=== PATIENT | female | born 1970 | race Caucasian/White ===

== ENCOUNTER → 2018-01-07 | Outpatient (CLI) | payer BC ==
--- NOTE | 2018-01-07 09:59 | MM ---
Reason for exam: follow-up at short interval from prior study. Last mammogram was performed 6 months ago. History: Cyst aspiration of the right breast, July 2012. Took hormonal contraceptives for 16 years beginning at age 21. Physical Findings: Nurse Summary: 3cm nodule in the left breast at 12 o'clock (nurse mj). MG 3D Diag Mammo W/Cad RT CC, MLO, and LM view(s) were taken of the right breast. Prior study comparison: July 04, 2017, bilateral MG 3d diag mammo w/cad YASMINE. July 06, 2016, bilateral MG work up mamm w CAD BILAT. The breast tissue is heterogeneously dense. This may lower the sensitivity of mammography. Finding: There is a 6 mm circumscribed round mass in the inner quadrant, middle position of the right breast. There is a chronic nodularity in the right breast. New finding and increase in size since July 04, 2017. These results were verbally communicated with the patient and result sheet given to the patient on 01/07/18. ASSESSMENT: Incomplete: need additional imaging evaluation, BI-RAD 0 RECOMMENDATION: Ultrasound of both breasts. (new palpables)
--- NOTE | 2018-01-07 10:01 | USB ---
Reason for exam: additional evaluation requested from abnormal screening. History: Cyst aspiration of the right breast, July 2012. Took hormonal contraceptives for 16 years beginning at age 21. US Breast Limited BILAT Right limited breast ultrasound including focal area of concern, retroareolar and axilla demonstrates a 0.7 x 0.4 x 0.7cm oval, cystic cluster at 2 o'clock and a 0.5 x 0.3 x 0.4cm oval, hypoechoic probable cyst at 3 o'clock. Left limited breast ultrasound including focal area of concern, retroareolar and axilla demonstrates a 2.9 x 1.9 x 3.4cm oval, cystic lesion at 12 o'clock. These results were verbally communicated with the patient and result sheet given to the patient on 01/07/18. ASSESSMENT: Probably benign, BI-RAD 3 RECOMMENDATION: Follow-up diagnostic mammogram of both breasts in 6 months. Ultrasound of the right breast in 6 months.
== END | disposition home or self-care (01) ==
LOC: RADMAMWWP 08:09
PROVIDERS: ATTEND Obstetrics & Gynecology
DX: R92.8 Other abnormal and inconclusive findings on diagnostic imaging of breast (principal)
CPT/HCPCS: 77061; 77065

== ENCOUNTER → 2018-07-10 | Outpatient (CLI) | payer BC ==
--- NOTE | 2018-07-11 08:45 | MM ---
Reason for exam: follow-up at short interval from prior study. Last mammogram was performed 6 months ago. History: Cyst aspiration of the right breast, July 2012. Took hormonal contraceptives for 16 years beginning at age 21. Physical Findings: Nurse Summary: 0.5 x 0.5cm nodule in the right breast at 12 o'clock (nurse ts). MG 3D Diag Mammo W/Cad YASMINE Bilateral CC and MLO view(s) were taken. Prior study comparison: January 07, 2018, right breast MG 3d diag mammo w/cad RT. July 04, 2017, bilateral MG 3d diag mammo w/cad YASMINE. The breast tissue is heterogeneously dense. This may lower the sensitivity of mammography. No suspicious calcifications are seen. There is chronic nodularity bilaterally. These results were verbally communicated with the patient and result sheet given to the patient on 07/10/18. ASSESSMENT: Incomplete: need additional imaging evaluation, BI-RAD 0 RECOMMENDATION: Ultrasound of the right breast.
--- NOTE | 2018-07-11 08:47 | USB ---
Reason for exam: follow-up at short interval from prior study. History: Cyst aspiration of the right breast, July 2012. Took hormonal contraceptives for 16 years beginning at age 21. US Breast RT Right complete breast ultrasound includes all four quadrants, the retroareolar region and axilla. Finding demonstrates a 0.5 x 0.2 x 0.5cm lesion too small to characterize at 1 o'clock, a 0.4 x 0.2 x 0.3cm lesion too small to characterize at 2 o'clock, a 0.6 x 0.2 x 0.4cm lesion too small to characterize at 3 o'clock and a 0.7 x 0.3 x 0.5cm mixed lesion at 6 o'clock. These results were verbally communicated with the patient and result sheet given to the patient on 07/10/18. ASSESSMENT: Probably benign, BI-RAD 3 RECOMMENDATION: Ultrasound of the right breast in 6 months.
== END | disposition home or self-care (01) ==
LOC: RADMAMWWP 14:57
PROVIDERS: ATTEND Obstetrics & Gynecology
DX: R92.8 Other abnormal and inconclusive findings on diagnostic imaging of breast (principal)
CPT/HCPCS: 77062; 77066

== ENCOUNTER → 2019-12-31 | Outpatient (CLI) | payer BC ==
--- NOTE | 2019-12-31 12:34 | MM ---
Reason for exam: additional evaluation requested from prior study. Last mammogram was performed 1 year and 6 months ago. History: Cyst aspiration of the right breast, July 2012. Took hormonal contraceptives for 16 years beginning at age 21. Physical Findings: Nurse did not find any significant physical abnormalities on exam. MG 3D Diag Mammo W/Cad YASMINE Bilateral CC and MLO view(s) were taken. Prior study comparison: July 10, 2018, bilateral MG 3d diag mammo w/cad YASMINE. January 07, 2018, right breast MG 3d diag mammo w/cad RT. July 04, 2017, bilateral MG 3d diag mammo w/cad YASMINE. The breast tissue is extremely dense which could obscure a lesion on mammography. No significant new findings when compared with previous films. These results were verbally communicated with the patient and result sheet given to the patient on 12/31/19. ASSESSMENT: Benign, BI-RAD 2 RECOMMENDATION: Routine screening mammogram of both breasts in 1 year.
--- NOTE | 2019-12-31 12:37 | USB ---
Reason for exam: additional evaluation requested from prior study. History: Cyst aspiration of the right breast, July 2012. Took hormonal contraceptives for 16 years beginning at age 21. US Breast RT Technologist: Nel Hernandez Right complete breast ultrasound includes all four quadrants, the retroareolar region and axilla. Finding demonstrates a 0.4 x 0.5 x 0.4cm circular, through transmission lesion at 12 o'clock for which a cyst aspiration is recommended, a 0.3 x 0.5 x 0.3cm circular, cystic lesion at 7 o'clock, a 1.1 x 0.6 x 0.4cm cystic cluster at 10 o'clock and a 0.7 x 0.8 x 0.4cm mixed lesion at 12 o'clock. These results were verbally communicated with the patient and result sheet given to the patient on 12/31/19. ASSESSMENT: Suspicious, BI-RAD 4 RECOMMENDATION: Aspiration of the right breast. Called Dr. Laughlin's office with mammographic findings and has scheduled an appointment for the patient for 01/18/20 at 9:[address] Lopez. Aspiration scheduled for 01/12/20 at 1:00. PRELIMINARY REPORT CALLED AND FAXED TO DR. LOPEZ ON 12/31/19. Ultrasound of the right breast in 6 months.
== END | disposition home or self-care (01) ==
LOC: RADMAMWWP 09:46
PROVIDERS: ATTEND Obstetrics & Gynecology
DX: R92.8 Other abnormal and inconclusive findings on diagnostic imaging of breast (principal)
CPT/HCPCS: 77062; 77066

== ENCOUNTER → 2020-01-12 | Day surgery (SDC) | payer BC ==
[2020-01-12 12:16] VITALS: RESP 16
--- NOTE | 2020-01-12 13:54 | USB ---
EXAMINATION TYPE: US biopsy breast VAD RT, MG diagnostic mammo RT wo CAD DATE OF EXAM: 01/12/2020 CLINICAL HISTORY: R92.8 abn. mammo. Abnormal ultrasound. TECHNIQUE: Ultrasound guided core biopsy of right breast with clip placement and follow-up diagnostic two-view mammogram. COMPARISON: Prior ultrasound December 31, 2019 and older studies. FINDINGS: The procedure of ultrasound guided fine needle aspiration and/or core biopsy was explained to the patient. Benefits, alternatives, and risks were discussed. An informed consent was then obtained. The patient was placed in supine positioning for imaging and for the procedure. Preprocedure ultrasound redemonstrates roughly 5 mm oval circumscribed lesion 12:00 position zone B/C in the right breast. No increased through transmission. The overlying skin was prepped and draped in usual sterile fashion. Lidocaine is used as anesthetic into the skin and subcutaneous tissue up to area of concern in the right breast. Ultrasound-guided fine-needle aspiration not attempted due to small size of lesion. Under ultrasound guidance, a 12-gauge vacuum assisted biopsy gun device was used to obtain 3 core samples. Following this, a biopsy clip was left at site of lesion. Suspicious lesion not clearly identified after sampling The patient tolerated the procedure well without any immediate complication. The patient was kept in the radiology department for short stay after the procedure and then discharged home in stable condition. Post procedure mammogram shows successful deployment of clip. IMPRESSION: Successful, uncomplicated ultrasound guided core biopsy of area of concern in the right breast, full pathology results to follow. Low index of suspicion noted at time of procedure. Pathology Results: Benign RIGHT BREAST, ASPIRATE: [place] apocrine lining cells, macrophages and degenerated cellular material consistent with benign apocrine cyst/cyst contents. Recommendation Follow up mammogram of the right breast in 6 months. JULIÁN
[2020-01-12 14:03] VITALS: BP 133/79; PULSE 67; TEMP 98.3
== END ==
LOC: RADUSWWP 11:56
PROVIDERS: ATTEND Student in an Organized Health Care Education/Training Program
DX: N60.31 Fibrosclerosis of right breast (principal); N60.21 Fibroadenosis of right breast; N60.81 Other benign mammary dysplasias of right breast
CPT/HCPCS: 88305; 77065; 19083; A4648; J2001

== ENCOUNTER → 2020-07-08 | Outpatient (CLI) | payer BC ==
--- NOTE | 2020-07-08 09:49 | USB ---
Reason for exam: follow-up at short interval from prior study. History: Benign US biopsy breast VAD RT of the right breast, January 12, 2020. Cyst aspiration of the right breast, July 2012. Took hormonal contraceptives for 16 years beginning at age 21. Physical Findings: Nurse did not find any significant physical abnormalities on exam. US Breast Limited RT Right limited breast ultrasound including focal area of concern, retroareolar and axilla demonstrates three oval, cystic lesions measuring 5 x 4 x 6mm at 12 o'clock, 5 x 3 x 4mm at 2 o'clock and 6 x 3 x 5mm at 3 o'clock. These results were verbally communicated with the patient and result sheet given to the patient on 07/08/20. ASSESSMENT: Benign, BI-RAD 2 RECOMMENDATION: Routine screening mammogram of both breasts in 6 months. Back on schedule for December 2020.
== END | disposition home or self-care (01) ==
LOC: RADUSWWP 08:05
PROVIDERS: ATTEND Obstetrics & Gynecology
DX: R92.8 Other abnormal and inconclusive findings on diagnostic imaging of breast (principal)

== ENCOUNTER → 2021-03-09 | Outpatient (CLI) | payer BC ==
--- NOTE | 2021-03-13 09:04 | MM ---
Reason for exam: screening (asymptomatic). Last mammogram was performed 1 year and 2 months ago. History: Benign US biopsy breast VAD RT of the right breast, January 12, 2020. Cyst aspiration of the right breast, July 2012. Took hormonal contraceptives for 16 years beginning at age 21. Physical Findings: A clinical breast exam by your physician is recommended on an annual basis and results should be correlated with mammographic findings. MG 3D Screening Mammo W/Cad Bilateral CC and MLO view(s) were taken. Prior study comparison: December 31, 2019, bilateral MG 3d diag mammo w/cad YASMINE. July 10, 2018, bilateral MG 3d diag mammo w/cad YASMINE. July 04, 2017, bilateral MG 3d diag mammo w/cad YASMINE. The breast tissue is heterogeneously dense. This may lower the sensitivity of mammography. Diffuse bilateral punctate calcifications redemonstrated. New nodularity lower outer quadrant left breast posteriorly. ASSESSMENT: Incomplete: need additional imaging evaluation, BI-RAD 0 RECOMMENDATION: Special view mammogram of the left breast. (3D) If lesion persists on supplemental views, image directed ultrasound is recommended. [facility] will attempt to contact patient to return for supplemental views and ultrasound if indicated.
== END | disposition home or self-care (01) ==
LOC: RADMAMWWP 08:18
PROVIDERS: ATTEND Obstetrics & Gynecology
DX: Z12.31 Encounter for screening mammogram for malignant neoplasm of breast (principal)
CPT/HCPCS: 77063; 77067

== ENCOUNTER → 2021-03-17 | Outpatient (CLI) | payer BC ==
--- NOTE | 2021-03-20 09:19 | MM ---
Reason for exam: additional evaluation requested from abnormal screening. Last mammogram was performed less than 1 month ago. History: Benign US biopsy breast VAD RT of the right breast, January 12, 2020. Cyst aspiration of the right breast, July 2012. Took hormonal contraceptives for 16 years beginning at age 21. Physical Findings: Nurse did not find any significant physical abnormalities on exam. MG 3D Work Up W/Cad LT Spot compression XCCL, spot compression MLO, and LM view(s) were taken of the left breast. Prior study comparison: March 09, 2021, bilateral MG 3d screening mammo w/cad. The breast tissue is heterogeneously dense. This may lower the sensitivity of mammography. Abnormality persists lower outer left breast. These results were verbally communicated with the patient and result sheet given to the patient on 03/17/21. ASSESSMENT: Incomplete: need additional imaging evaluation, BI-RAD 0 RECOMMENDATION: Ultrasound of the left breast.
--- NOTE | 2021-03-20 09:21 | USB ---
Reason for exam: additional evaluation requested from abnormal screening. History: Benign US biopsy breast VAD RT of the right breast, January 12, 2020. Cyst aspiration of the right breast, July 2012. Took hormonal contraceptives for 16 years beginning at age 21. US Breast Workup Limited LT Left limited breast ultrasound including focal area of concern, retroareolar and axilla demonstrates a 0.4 x 0.4 x 0.2cm oval, cystic lesion at 3 o'clock, a 0.5 x 0.3 x 0.3cm oval, cystic cluster at 5 o'clock, a 0.3 x 0.5 x 0.3cm oval, cystic lesion at 6 o'clock and a 1.6 x 1.4 x 0.6cm lymph node at the axilla. These results were verbally communicated with the patient and result sheet given to the patient on 03/17/21. ASSESSMENT: Benign, BI-RAD 2 RECOMMENDATION: Return to routine screening mammogram schedule for both breasts.
== END | disposition home or self-care (01) ==
LOC: RADMAMWWP 14:43
PROVIDERS: ATTEND Obstetrics & Gynecology
DX: R92.2 Inconclusive mammogram (principal); Z79.3 Long term (current) use of hormonal contraceptives
CPT/HCPCS: 77061; 77065

== ENCOUNTER → 2021-09-01 | Outpatient (CLI) | payer BC ==
--- NOTE | 2021-09-01 08:04 | MR ---
EXAMINATION TYPE: MR angio head wo con DATE OF EXAM: 09/01/2021 COMPARISON: NONE HISTORY: Headaches and dizziness since june. TECHNIQUE: Time of flight images focusing on the [place] were performed without contrast.. 2-D and 3-D postprocessing imaging is performed on independent workstation. FINDINGS: Codominant vertebral arteries patent to basilar junction. No significant focal stenosis or aneurysm in the posterior circulation. Patent right posterior communicating artery. Patent but small caliber left posterior communicating artery. Images of the anterior circulation show patent anterior communicating artery on image 84. There is so me tortuous course to the anterior cerebral arteries but no significant focal stenosis or aneurysm in the anterior circulation. IMPRESSION: No aneurysm at the level of the [place] of [place].
== END | disposition home or self-care (01) ==
LOC: RADMRIMAIN 07:05
PROVIDERS: ATTEND Internal Medicine
DX: R42 Dizziness and giddiness (principal); R51.9 Headache, unspecified
CPT/HCPCS: 70544

== ENCOUNTER 2021-09-19 07:13 | Observation (INO) | payer BC ==
[2021-09-19 07:20] VITALS: RESP 18
[2021-09-19] MEDS ORDERED: ONDANSETRON 4 MG/2 ML VIAL IVP STA (08:06)
[2021-09-19] MEDS ORDERED: HYDROmorphone 0.5 MG/0.5 ML SYRINGE IVP STA ×2 (08:06→11:44)
[2021-09-19] MEDS ORDERED: SODIUM CHLORIDE 0.9% 1,000 ML IV STA (08:06)
--- NOTE | 2021-09-19 08:25 | ED ---
General Adult HPI - General Chief complaint: Abdominal Pain Stated complaint: L Flank Pain Time Seen by Provider: 09/19/21 07:21 Source: patient, RN notes reviewed Mode of arrival: ambulatory Limitations: no limitations - History of Present Illness Initial comments: 51-year-old female presents to the emergency room for a chief complaint of left sided abdominal pain. Patient states that this started very Sep 08. She was started on Augmentin for a bilateral ear infection about 4-5 days prior to this. Patient states she stopped taking the antibiotic in and saw her doctor on the who ordered a CAT scan with IV contrast showing inflammation of the colon according to the patient. He shouldn't states the pain then resolved however she was given more Cipro and Flagyl to start yesterday and late last night and this morning her pain returned. She denies fevers but does admit to chills. She denies diarrhea. Admits to nausea but denies vomiting. Denies any history of abdominal surgeries.Patient has no other complaints at this time inc luding shortness of breath, chest pain, vomiting, headache, or visual changes. - Related Data Home Medications Medication Instructions Recorded Confirmed Cetirizine HCl [Zyrtec] 10 mg PO DAILY 01/05/20 09/19/21 Ciprofloxacin HCl [Cipro] 500 mg PO Q12HR 09/19/21 09/19/21 L.acidoph,Paracasei, B.lactis 1 cap PO DAILY 09/19/21 09/19/21 [Probiotic] Multivitamins, Thera [Multivitamin 1 tab PO DAILY 09/19/21 09/19/21 (formulary)] metroNIDAZOLE [Flagyl] 500 mg PO TID 09/19/21 09/19/21 Allergies Allergy/AdvReac Type Severity Reaction Status Date / Time clarithromycin [From Biaxin] Allergy Rash/Hives Verified 09/19/21 08:53 Review of Systems ROS Statement: Those systems with pertinent positive or pertinent negative responses have been documented in the HPI. ROS Other: All systems not noted in ROS Statement are negative. Past Medical History Past Medical History: No Reported History History of Any Multi-Drug Resistant Organisms: None Reported Past Surgical History: Breast Surgery, Uterine Ablation Additional Past Surgical History / Comment(s): right breast cyst aspiration roughly 5 years ago Past Anesthesia/Blood Transfusion Reactions: No Reported Reaction Past Psychological History: No Psychological Hx Reported Smoking Status: Never smoker Past Alcohol Use History: Occasional Past Drug Use History: None Reported General Exam Limitations: no limitations General appearance: alert, in no apparent distress Head exam: Present: atraumatic Eye exam: Present: normal appearance, PERRL, EOMI. Absent: scleral icterus, conjunctival injection ENT exam: Present: normal exam, mucous membranes moist Neck exam: Present: normal inspection, full ROM. Absent: tenderness Respiratory exam: Present: normal lung sounds bilaterally. Absent: respiratory distress, wheezes Cardiovascular Exam: Present: regular rate, normal rhythm, normal heart sounds GI/Abdominal exam: Present: soft, tenderness (LLQ tenderness, no gaurding/rebound, no upper or RLQ tenderness.), normal bowel sounds. Absent: distended, guarding, rebound Neurological exam: Present: alert Course Vital Signs 09/19/21 07:14 Temperature 97 F L Pulse Rate 75 Respiratory 18 Rate Blood Pressure 160/87 O2 Sat by Pulse 100 Oximetry Medical Decision Making - Medical Decision Making Vitals are stable. CBC and CMP are unremarkable. Lactic acid is normal Uri nalysis is negative. Patient was in moderate to severe pain upon arrival. Given Dilaudid which did help significantly. I did review CAT scan which showed some possible mild colonic inflammation as well as a possible lesion in the left ovary, recommended pelvic ultrasound. In the ER I did obtain an ultrasound which was limited due to bowel gas but did not show any significant abnormalities. Abdomen x-ray showed some stool and gas but no acute abnormalities. No pneumoperitoneum. Patient reevaluated and pain has increased again and she is very comfortable. I discussed this case with Dr. Montano as he has also been seen patient for this complaint. At this time requests admission to him with consult to surgery with RIYA Oliveira and [place]. Patient does see Dr. biggs. - Lab Data Result diagrams: 09/19/21 08:32 09/19/21 08:32 Lab Results 09/19/21 09/19/21 09/19/21 Range/Units 08:32 08:32 08:32 WBC 5.4 (3.8-10.6) k/uL RBC 4.29 (3.80-5.40) m/uL Hgb 14.0 (11.4-16.0) gm/dL Hct 40.8 (34.0-46.0) % MCV 95.1 (80.0-100.0) fL MCH 32.6 (25.0-35.0) pg MCHC 34.3 (31.0-37.0) g/dL RDW 11.5 (11.5-15.5) % Plt Count 278 (150-450) k/uL MPV 6.8 Neutrophils % 59 % Lymphocytes % 27 % Monocytes % 7 % Eosinophils % 3 % Basophils % 1 % Neutrophils # 3.2 (1.3-7.7) k/uL Lymphocytes # 1.4 (1.0-4.8) k/uL Monocytes # 0.4 (0-1.0) k/uL Eosinophils # 0.2 (0-0.7) k/uL Basophils # 0.1 (0-0.2) k/uL Sodium 140 (137-145) mmol/L Potassium 4.1 (3.5-5.1) mmol/L Chloride 109 H (98-107) mmol/L Carbon Dioxide 23 (22-30) mmol/L Anion Gap 8 mmol/L BUN 11 (7-17) mg/dL Creatinine 0.69 (0.52-1.04) mg/dL Est GFR (CKD-EPI)AfAm >90 (>60 ml/min/1.73 sqM) Est GFR (CKD-EPI)NonAf >90 (>60 ml/min/1.73 sqM) Glucose 103 H (74-99) mg/dL Plasma Lactic Acid Dilan (0.7-2.0) mmol/L Calcium 9.4 (8.4-10.2) mg/dL Total Bilirubin 1.7 H (0.2-1.3) mg/dL AST 26 (14-36) U/L ALT 19 (4-34) U/L Alkaline Phosphatase 67 (38-126) U/L Total Protein 7.8 (6.3-8.2) g/dL Albumin 4.4 (3.5-5.0) g/dL Amylase 99 (30-110) U/L Lipase 97 (23-300) U/L Urine Color Light Yellow Urine Appearance Clear (Clear) Urine pH 7.5 (5.0-8.0) Ur Specific [place] 1.003 (1.001-1.035) Urine Protein Negative (Negative) Urine Glucose (UA) Negative (Negative) Urine Ketones Negative (Negative) Urine Blood Trace H (Negative) Urine Nitrite Negative (Negative) Urine Bilirubin Negative (Negative) Urine Urobilinogen <2.0 (<2.0) mg/dL Ur Leukocyte Esterase Negative (Negative) Urine RBC 1 (0-5) /hpf Ur Squamous Epith Cells 1 (0-4) /hpf Urine Bacteria Rare H (None) /hpf Urine HCG, Qual (Not Detectd) 09/19/21 09/19/21 Range/Units 08:32 08:32 WBC (3.8-10.6) k/uL RBC (3.80-5.40) m/uL Hgb (11.4-16.0) gm/dL Hct (34.0-46.0) % MCV (80.0-100.0) fL MCH (25.0-35.0) pg MCHC (31.0-37.0) g/dL RDW (11.5-15.5) % Plt Count (150-450) k/uL MPV Neutrophils % % Lymphocytes % % Monocytes % % Eosinophils % % Basophils % % Neutrophils # (1.3-7.7) k/uL Lymphocytes # (1.0-4.8) k/uL Monocytes # (0-1.0) k/uL Eosinophils # (0-0.7) k/uL Basophils # (0-0.2) k/uL Sodium (137-145) mmol/L Potassium (3.5-5.1) mmol/L Chloride (98-107) mmol/L Carbon Dioxide (22-30) mmol/L Anion Gap mmol/L BUN (7-17) mg/dL Creatinine (0.52-1.04) mg/dL Est GFR (CKD-EPI)AfAm (>60 ml/min/1.73 sqM) Est GFR (CKD-EPI)NonAf (>60 ml/min/1.73 sqM) Glucose (74-99) mg/dL Plasma Lactic Acid Dilan 0.9 (0.7-2.0) mmol/L Calcium (8.4-10.2) mg/dL Total Bilirubin (0.2-1.3) mg/dL AST (14-36) U/L ALT (4-34) U/L Alkaline Phosphatase (38-126) U/L Total Protein (6.3-8.2) g/dL Albumin (3.5-5.0) g/dL Amylase (30-110) U/L Lipase (23-300) U/L Urine Color Urine Appearance (Clear) Urine pH (5.0-8.0) Ur Specific [place] (1.001-1.035) Urine Protein (Negative) Urine Glucose (UA) (Negative) Urine Ketones (Negative) Urine Blood (Negative) Urine Nitrite (Negative) Urine Bilirubin (Negative) Urine Urobilinogen (<2.0) mg/dL Ur Leukocyte Esterase (Negative) Urine RBC (0-5) /hpf Ur Squamous Epith Cells (0-4) /hpf Urine Bacteria (None) /hpf Urine HCG, Qual Not Detected (Not Detectd) Disposition Clinical Impression: Intractable abdominal pain Disposition: ADMITTED IP TO THIS HOSP Is patient prescribed a controlled substance at d/c from ED?: No Referrals: Shannen Montano MD [Primary Care Provider] - 1-2 days Time of Disposition: 12:06
[2021-09-19 08:50] LABS: Basophils # (A) 0.1 k/uL (0-0.2); Basophils % (A) 1 %; Eosinophils # (A) 0.2 k/uL (0-0.7); Eosinophils % (A) 3 %; HCT 40.8 % (34.0-46.0); Lymphocytes # (A) 1.4 k/uL (1.0-4.8); Lymphocytes % (A) 27 %; MCH 32.6 pg (25.0-35.0); MCHC 34.3 g/dL (31.0-37.0); MCV 95.1 fL (80.0-100.0); Mean Platelet Volume 6.8; Monocytes # (A) 0.4 k/uL (0-1.0); Monocytes % (A) 7 %; Neutrophils # (A) 3.2 k/uL (1.3-7.7); Neutrophils % (A) 59 %; Platelet Count 278 k/uL (150-450); RBC 4.29 m/uL (3.80-5.40); RDW 11.5 % (11.5-15.5); WBC 5.4 k/uL (3.8-10.6)
[2021-09-19 08:52] LABS: Appearance,Urine Clear (Clear); Bacteria,Urine Rare /hpf; Bilirubin,Urine Negative (Negative); Blood,Urine Trace (Negative); Color,Urine Light Yellow; Glucose,Urine (UA) Negative (Negative); Ketones,Urine Negative (Negative); Leukocyte Esterase,Urine Negative (Negative); Nitrite,Urine Negative (Negative); PH, Urine 7.5 (5.0-8.0); Protein,Urine Negative (Negative); RBC,Urine 1 /hpf (0-5); Specific Gravity,Urine 1.003 (1.001-1.035); Squamous Epithelial Cell,Urine 1 /hpf (0-4); Urobilinogen,Urine <2.0 mg/dL (<2.0)
[2021-09-19 09:00] LABS: ALT 19 U/L (4-34); AST 26 U/L (14-36); African American GFR (CKD) >90 (>60 ml/min/1.73 sqM); Albumin 4.4 g/dL (3.5-5.0); Alkaline Phosphatase 67 U/L (38-126); Amylase 99 U/L (30-110); Anion Gap 8 mmol/L; Blood Urea Nitrogen 11 mg/dL (7-17); Calcium 9.4 mg/dL (8.4-10.2); Carbon Dioxide 23 mmol/L (22-30); Chloride 109 mmol/L (98-107); Glucose 103 mg/dL (74-99); Lipase 97 U/L (23-300); Non-African American GFR(CKD) >90 (>60 ml/min/1.73 sqM); Potassium 4.1 mmol/L (3.5-5.1); Sodium 140 mmol/L (137-145); Total Bilirubin 1.7 mg/dL (0.2-1.3); Total Protein 7.8 g/dL (6.3-8.2)
--- NOTE | 2021-09-19 09:54 | XR ---
EXAMINATION TYPE: XR abdomen 2V DATE OF EXAM: 09/19/2021 CLINICAL HISTORY: Left lower quadrant pain TECHNIQUE: Supine and upright views of the abdomen are obtained. COMPARISON: None. FINDINGS: Scattered gas is seen in non-distended small bowel loops. Gas and fecal material is seen in non-distended colon. Right-sided pelvic phleboliths are present. No free air. The lung bases are clear and the osseous structures are intact. IMPRESSION: Overall nonobstructive bowel gas pattern.
--- NOTE | 2021-09-19 11:13 | US ---
EXAMINATION TYPE: US pelvis complete transvag DATE OF EXAM: 09/19/2021 COMPARISON: NONE CLINICAL HISTORY: pain. LLQ pain x 1 week, started period today, , h/o ablation TECHNIQUE: TA/TV. Transabdominal sonographic images of the pelvis were acquired. Transvaginal sono graphic images were medically necessary to better assess the following anatomy: left ovary Date of LMP: today EXAM MEASUREMENTS: Uterus: 8.6 x 5.7 x 4.3 cm Endometrial Stripe: 0.7 cm Right Ovary: 2.4 x 1.2 x 1.2 cm Left Ovary: 1.6 x 1.1 x 0.7 cm 1. Uterus: Anteverted heterogeneous, nabothian within cervix 2. Endometrium: wnl 3. Right Ovary: wnl 4. Left Ovary: wnl Spectral, color and waveform doppler imaging shows good arterial and venous flow within the ovaries ; there is no evidence for ovarian torsion. 5. Bilateral Adnexa: bowel gas limits view 6. Posterior cul-de-sac: wnl very challenging to assess ovaries due to extensive bowel gas, used transabdominal approach to find left ovary. IMPRESSION: No abnormality evident to account for patient's symptoms.
[2021-09-19] MEDS ORDERED: ONDANSETRON 4 MG/2 ML VIAL IVP PRN ×2 (12:07→14:32)
[2021-09-19] MEDS ORDERED: NALOXONE 0.4 MG/ML 1 ML VIAL IV PRN (12:07)
[2021-09-19] MEDS ORDERED: HYDROmorphone 1 MG/ML 1 ML SYRINGE IVP PRN (12:07)
[2021-09-19] MEDS ORDERED: metroNIDAZOLE-NS PMX 500 MG in SALINE 1 100ML.BAG IVPB STA (12:08)
[2021-09-19] MEDS ORDERED: LEVOFLOXACIN 500MG-D5W PMX 500 MG in DEXTROSE/WATER 1 100ML.BAG IVPB STA (12:09)
[2021-09-19] MEDS ORDERED: LEVOFLOXACIN 250MG-D5W PMX 500 MG in DEXTROSE/WATER 1 50ML.BAG IVPB STA (12:09)
[2021-09-19] MEDS: SODIUM CHLORIDE 0.9% 1,000 ML IV SCH ×2 (13:04→21:49)
[2021-09-19] MEDS: KETOROLAC 30 MG/ML 1 ML VIAL IVP SCH (21:44)
[2021-09-19] MEDS: metroNIDAZOLE-NS PMX 500 MG in SALINE 1 100ML.BAG IVPB SCH (21:54)
[2021-09-20] MEDS: HEPARIN SODIUM,PORCINE/PF 5,000 UNIT/0.5 ML SYRINGE SQ SCH ×3 (00:04→16:34)
[2021-09-20] MEDS: KETOROLAC 30 MG/ML 1 ML VIAL IVP SCH ×2 (06:10→11:46)
[2021-09-20] MEDS: SODIUM CHLORIDE 0.9% 1,000 ML IV SCH ×2 (06:11→11:46)
[2021-09-20] MEDS: metroNIDAZOLE-NS PMX 500 MG in SALINE 1 100ML.BAG IVPB SCH ×2 (07:32→16:34)
[2021-09-20] MEDS ORDERED: LORATADINE 10 MG TAB PO SCH (09:00)
[2021-09-20] MEDS ORDERED: MULTIVITAMINS, THERA 1 EACH TAB PO SCH (09:00)
[2021-09-20] MEDS ORDERED: LACTOBACILLUS ACIDOPH & BULGAR 1 EACH PACKET PO SCH (09:00)
[2021-09-20] MEDS ORDERED: PANTOPRAZOLE 40 MG/10 ML VIAL IVP SCH (09:00)
[2021-09-20 09:44] LABS: Basophils # (A) 0.05 X 10*3/uL (0.00-0.10); Basophils % (A) 0.7 %; Eosinophils # (A) 0.07 X 10*3/uL (0.04-0.35); HCT 36.4 % (37.2-46.3); HGB 11.7 g/dL (12.0-15.0); Immature Grans, Automated 0.1 %; Lymphocytes # (A) 1.89 X 10*3/uL (0.90-5.00); Lymphocytes % (A) 27.6 %; MCH 31.4 pg (27.0-32.0); MCHC 32.1 g/dL (32.0-37.0); MCV 97.6 fL (80.0-97.0); Mean Platelet Volume 9.6 fL (9.5-12.2); Monocytes % (A) 10.2 %; NRBC Per 100 WBC 0 /100 WBCS (0.0-0.0); Neutrophils # (A) 4.14 X 10*3/uL (1.80-7.70); Neutrophils % (A) 60.4 %; Platelet Count 248 X 10*3/uL (140-440); RBC 3.73 X 10*6/uL (4.10-5.20); RDW 11.8 % (11.5-14.5); WBC 6.86 X 10*3/uL (4.50-10.00)
[2021-09-20 11:43] LABS: African American GFR (CKD) 121.5 (60.0-200.0); Albumin 3.7 g/dL (3.8-4.9); Albumin/Globulin Ratio 1.68 (1.60-3.17); BUN/Creat Ratio 16.67 Ratio (12.00-20.00); Calcium 8.3 mg/dL (8.7-10.3); Globulin 2.2 g/dL (1.6-3.3); Non-African American GFR(CKD) 104.8 (60.0-200.0); Potassium 3.9 mmol/L (3.5-5.5); Total Bilirubin 1.2 mg/dL (0.30-1.20); Total Protein 5.9 g/dL (6.2-8.2)
[2021-09-20 13:03] VITALS: BP 126/70; PULSE 69; TEMP 98
--- NOTE | 2021-09-20 15:04 | P.DS ---
Providers Date of admission: 09/19/21 12:07 Expected date of discharge: 09/20/21 Attending physician: Shannen Montano Consults: 09/19/21 12:07 Consult Physician Routine Consulting Provider: Matthieu Willard Consult Reason/Comments: intractable abdominal pain Do you want consulting provider notified?: Yes Primary care physician: Shannen Montano [facility] Course: HISTORY OF PRESENT ILLNESS: This is a 49-year-old female very active and healthy without acute health issues except for ALLERGIC rhinitis, patient developed to have a double ear infection when she was down in [place] and she did finish a 10 day course of amoxicillin 875 mg orally twice every day patient felt well after that and she had an episode of dizzy spell that thought to be due to her inner ear infection, patient dizziness got better however 4 days ago developed to have a significant left lower quadrant abdominal pain associated with nausea but no vomiting she has not had any fever or chills with that, she has not had any blood in the stroke relaxer, patient did not do anything about it, she showed up to the office 4 days later on September 18 and the examination was suggestive of left lower quadrant abdominal pain no guarding raising the possibility of sigmoid diverticulitis, she wason oral antibiotic in the form of Ciprofloxacillin 500 mg orally twice every day as well as metronidazole 500 mg orally 2 times every day, she was sent for computed tomography scan of the abdomen and pelvis with oral contrast and IV contrast and the computed tomography scan came back negative except for incomplete distention of the left side of the colon with possible mild colitis without evidence of diverticulitis I advised the patient to continue taking her antibiotic and that she needed to go for a colonoscopy as soon as possible for evaluation, there was questionable adnexal mass or cyst and it was recommended that time for the patient to go for pelvic ultrasound however she was in so much pain that she put that on hold, patient being got worse over the last 24 hours so she ended up coming to the emergency department for evaluation and she ended up going for an ultrasound of the pelvic area that did not show any significant abnormalities, patient ended up coming to the hospital and she was admitted her white count were normal she was started on IV antibiotic in the form of ciprofloxacin as well as metronidazole and IV initially was started on Dilaudid but that made her more sick so she was switched to Toradol 15 mg IV push every 6 hours and she was admitted plus surgical consultation from Dr. willard. 09/20: Patient in today in the emergency center, waiting for a bed on the observation unit. She remains afebrile, heart rate in the 80s, blood pressure 130/66, pulse ox 99% on room air. Consult with Gen. surgery in place, Dr. willard. Patient may be discharged home if cleared by general surgery and patient is doing well by the afternoon. Patient was seen by Dr. Willard. He reviewed CAT scan images with radiology and does not appear to be colonic in nature. Recommendations to follow-up with OB for pelvic varices and left ovary. Plan is to follow-up with general surgery as an outpatient to perform colonoscopy. Patient was discharged home in stable condition and continued on antibiotics. DISCHARGE DIAGNOSES 1. Severe intractable left lower quadrant abdominal pain contrary to possible mild colitis but more concerning for pelvic varices and left ovarian cysts. 2. ALLERGIC rhinitis. Stable. 3. 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 Garry hawthorne 4. Pain control. Impression and plan of care have been directed as dictated by the signing physician. Imani Gann nurse practitioner acting as scribe for signing physician. Patient Condition at Discharge: Good Plan - Discharge Summary New Discharge Prescriptions: Continue Cetirizine HCl [Zyrtec] 10 mg PO DAILY Multivitamins, Thera [Multivitamin (formulary)] 1 tab PO DAILY Ciprofloxacin HCl [Cipro] 500 mg PO Q12HR metroNIDAZOLE [Flagyl] 500 mg PO TID L.acidoph,Paracasei, B.lactis [Probiotic] 1 cap PO DAILY Discharge Medication List Cetirizine HCl [Zyrtec] 10 mg PO DAILY 01/05/20 [History] Ciprofloxacin HCl [Cipro] 500 mg PO Q12HR 09/19/21 [History] L.acidoph,Paracasei, B.lactis [Probiotic] 1 cap PO DAILY 09/19/21 [History] Multivitamins, Thera [Multivitamin (formulary)] 1 tab PO DAILY 09/19/21 [History] metroNIDAZOLE [Flagyl] 500 mg PO TID 09/19/21 [History] Follow up Appointment(s)/Referral(s): Matthieu Willard DO [Doctor of Osteopathic Medicine] - 2 Weeks Shannen Montano MD [Primary Care Provider] - 1 Week Patient Instructions/Handouts: Acute Abdominal Pain (DC) Discharge Disposition: HOME SELF-CARE
--- NOTE | 2021-09-20 17:15 | P.GSCN ---
History of Present Illness Consult date: 09/20/21 History of present illness: Patient presented with a complaint of abdominal pain LLQ after having a double ear infectiona nd being on antibiotics for that. She denies and diarrhea. She was Nauseated. No other complaints. She states this feels similar to an ovarian cyst she had in the past. Past Medical History Past Medical History: No Reported History History of Any Multi-Drug Resistant Organisms: None Reported Past Surgical History: Breast Surgery, Uterine Ablation Additional Past Surgical History / Comment(s): right breast cyst aspiration roughly 5 years ago Past Anesthesia/Blood Transfusion Reactions: No Reported Reaction Past Psychological History: No Psychological Hx Reported Smoking Status: Never smoker Past Alcohol Use History: Occasional Past Drug Use History: None Reported Medications and Allergies Home Medications Medication Instructions Recorded Confirmed Type Cetirizine HCl [Zyrtec] 10 mg PO DAILY 01/05/20 09/19/21 History Ciprofloxacin HCl [Cipro] 500 mg PO Q12HR 09/19/21 09/19/21 History L.acidoph,Paracasei, B.lactis 1 cap PO DAILY 09/19/21 09/19/21 History [Probiotic] Multivitamins, Thera [Multivitamin 1 tab PO DAILY 09/19/21 09/19/21 History (formulary)] metroNIDAZOLE [Flagyl] 500 mg PO TID 09/19/21 09/19/21 History Allergies Allergy/AdvReac Type Severity Reaction Status Date / Time clarithromycin [From Biaxin] Allergy Rash/Hives Verified 09/19/21 08:53 Surgical - Exam Osteopathic Statement: *. No significant issues noted on an osteopathic st ructural exam other than those noted in the History and Physical/Consult. Vital Signs Temp Pulse Resp BP Pulse Ox 97 F L 75 18 160/87 100 09/19/21 07:14 09/19/21 07:14 09/19/21 07:14 09/19/21 07:14 09/19/21 07:14 - General well developed, well nourished, no distress - Neck trachea midline - Cardiovascular Rhythm: regular - Abdomen Mild TTP LLQ Abdomen: soft Results - Labs 09/20/21 04:32 09/20/21 04:32 Abnormal Lab Results - Last 24 Hours (Table) 09/20/21 09/20/21 Range/Units 04:32 04:32 RBC 3.73 L (4.10-5.20) X 10*6/uL Hgb 11.7 L (12.0-15.0) g/dL Hct 36.4 L (37.2-46.3) % MCV 97.6 H (80.0-97.0) fL Carbon Dioxide 18.0 L (20.0-27.5) mmol/L Calcium 8.3 L (8.7-10.3) mg/dL Total Protein 5.9 L (6.2-8.2) g/dL Albumin 3.7 L (3.8-4.9) g/dL Microbiology - Last 24 Hours (Table) 09/19/21 12:50 Blood Culture - Preliminary Blood No Growth after 24 hours 09/19/21 13:05 Blood Culture - Preliminary Blood No Growth after 24 hours Diabetes panel 09/20/21 Range/Units 04:32 Sodium 139 (135-145) mmol/L Potassium 3.9 (3.5-5.5) mmol/L Chloride 106 (96-109) mmol/L Carbon Dioxide 18.0 L (20.0-27.5) mmol/L BUN 10.0 (9.0-27.0) mg/dL Creatinine 0.6 (0.6-1.5) mg/dL Glucose 83 (70-110) mg/dL Calcium 8.3 L (8.7-10.3) mg/dL AST 16 (13-35) U/L ALT 15 (8-44) U/L Alkaline Phosphatase 54 (41-126) U/L Total Protein 5.9 L (6.2-8.2) g/dL Albumin 3.7 L (3.8-4.9) g/dL Calcium panel 09/20/21 Range/Units 04:32 Calcium 8.3 L (8.7-10.3) mg/dL Albumin 3.7 L (3.8-4.9) g/dL Pituitary panel 09/20/21 Range/Units 04:32 Sodium 139 (135-145) mmol/L Potassium 3.9 (3.5-5.5) mmol/L Chloride 106 (96-109) mmol/L Carbon Dioxide 18.0 L (20.0-27.5) mmol/L BUN 10.0 (9.0-27.0) mg/dL Creatinine 0.6 (0.6-1.5) mg/dL Glucose 83 (70-110) mg/dL Calcium 8.3 L (8.7-10.3) mg/dL Adrenal panel 09/20/21 Range/Units 04:32 Sodium 139 (135-145) mmol/L Potassium 3.9 (3.5-5.5) mmol/L Chloride 106 (96-109) mmol/L Carbon Dioxide 18.0 L (20.0-27.5) mmol/L BUN 10.0 (9.0-27.0) mg/dL Creatinine 0.6 (0.6-1.5) mg/dL Glucose 83 (70-110) mg/dL Calcium 8.3 L (8.7-10.3) mg/dL Total Bilirubin 1.20 (0.30-1.20) mg/dL AST 16 (13-35) U/L ALT 15 (8-44) U/L Alkaline Phosphatase 54 (41-126) U/L Total Protein 5.9 L (6.2-8.2) g/dL Albumin 3.7 L (3.8-4.9) g/dL Assessment and Plan Assessment: Abdominal pain Plan: I did review the CT findings at [facility]. There was not any significant fat stranding or inflammatory change in the colon to indicated colitis at that time. Reviewing the CT the lesion that the radiologist was indicating did not appear to be colonic in nature. I do recommend patient follows up with OB for pelvic varices and left ovary. She was scheduled multiple times with my office for colonoscopy in the past but has yet to follow through on the appointment. I did encourage her to follow up with me as an outpatient and recommended that we do perform the colonoscopy in the outpatient setting. She understood and agreed. No plans for acute surgical intervention at this time.
--- NOTE | 2021-09-24 10:31 | P.HPIM ---
History of Present Illness H&P Date: 09/19/21 Chief Complaint: Left lower quadrant abdominal pain with possible colitis HISTORY OF PRESENT ILLNESS: This is a 49-year-old female very active and healthy without acute health issues except for ALLERGIC rhinitis, patient developed to have a double ear infection when she was down in [place] and she did finish a 10 day course of amoxicillin 875 mg orally twice every day patient felt well after that and she had an episode of dizzy spell that thought to be due to her inner ear infection, patient dizziness got better however 4 days ago developed to have a significant left lower quadrant abdominal pain associated with nausea but no vomiting she has not had any fever or chills with that, she has not had any blood in the stroke relaxer, patient did not do anything about it, she showed up to the office 4 days later on September 18 and the examination was suggestive of left lower quadrant abdominal pain no guarding raising the possibility of sigmoid diverticulitis, she wason oral antibiotic in the form of Ciprofloxacillin 500 mg orally twice every day as well as metronidazole 500 mg orally 2 times every day, she was sent for computed tomography scan of the abdomen and pelvis with oral contrast and IV contrast and the computed tomography scan came back negative except for incomplete distention of the left side of the colon with possible mild colitis without evidence of diverticulitis I advised the patient to continue taking her antibiotic and that she needed to go for a colonoscopy as soon as possible for evaluation, there was questionable adnexal mass or cyst and it was recommended that time for the patient to go for pelvic ultrasound however she was in so much pain that she put that on hold, patient being got worse over the last 24 hours so she ended up coming to the emergency department for evaluation and she ended up going for an ultrasound of the pelvic area that did not show any significant abnormalities, patient ended up coming to the hospital and she was admitted her white count were normal she was started on IV antibiotic in the form of ciprofloxacin as well as metronidazole and IV initially was started on Dilaudid but that made her more sick so she was switched to Toradol 15 mg IV push every 6 hours and she was admitted plus s urgical consultation from Dr. biggs. REVIEW OF SYSTEMS: Constitutional: No documented fever, no chills, no night sweats. No weight change. No weakness, fatigue or lethargy. No daytime sleepiness. HEENT: No headache. No blurred vision or double vision, no loss of vision. No loss of Hearing, no ringing in the ears, no dizziness. No nasal drainage or congestion. No epistaxis. No sore throat. Lungs: No shortness of breath, no cough, no sputum production. No wheezing. Reports dyspnea with activity. Cardiovascular: No chest pain, no lower extremity edema. No palpitations. No paroxysmal nocturnal dyspnea. No orthopnea. No lightheadedness or dizziness. No syncopal episodes. Abdominal: Reports abdominal pain. mild nausea, no vomiting. No diarrhea. No constipation. No bloody or tarry stools reports loss of appetite. Genitourinary: No dysuria, increased frequency, urgency. No urinary retention. Musculoskeletal: No myalgias. No muscle weakness, no gait dysfunction, no fr equent falls. No back pain. No neck pain. Integumentary: No wounds, no lesions. No rash or pruritus. No unusual bruising. No change in hair or nails. Neurologic: No aphasia. No facial droop. No change in mentation. No head injury. No headache. No paralysis. No paresthesia. Psychiatric: No depression. No anxiety. No mood swings. Endocrine: No abnormal blood sugars. No weight change. PAST MEDICAL HISTORY: ALLERGIC rhinitis. 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 FAMILY HISTORY: Father is 86-year-old with history of asthma monitor for ablation, hypertension, and hyperlipidemia, mother is 84-year-old with history of hyperlipidemia, h ypertension, she did have also history of mitral valve replacement, patient has 2 brothers alive and well and one twin sister with no health issues she has a daughter and a son no major medical problems. PHYSICAL EXAMINATION: General: 51-year-old female who is laying down in bed in moderate distress due to abdominal pain. HEENT: Head is atraumatic, normocephalic, pupils were equal round reactive to light and recommendation, extraocular muscle movement were intact, sclera nonicteric, conjunctivae were pale, mucous membranes of the mouth are somewhat dry. Neck: Supple, no JVP, normal carotid upstroke bilaterally, no lymphadenopathy. Chest: Decreased breath sounds at the bases, few rhonchi, no expiratory wheezes, no chest wall tenderness, no intercostal retractions. Heart: First heart sound is normal, second heart sounds normal there is no gallop or murmur. Abdomen: Soft, moderate tenderness of the left lower quadrant and no rebound or guarding positive bowel sounds Extremities: There is no edema no calf tenderness DP +2 bilaterally. Neurologic examination: Patient is awake alert and oriented X 3, cranial nerves II-12 appear grossly intact, muscle power were 5 out of 5 in upper extremities and 5 out of 5 in bilateral lower extremities, deep tendon reflexes normal bilaterally. ASSESSMENT AND PLAN: 1. Severe intractable left lower quadrant abdominal pain with a computed tomography scan of the abdomen and pelvis did not show significant issues except for possible mild colitis no evidence of diverticulitis no evidence of perforation no evidence of abscess. Pelvic ultrasound is negative. Start the patient on IV fluid normal saline at 1 25 mL an hour, start Ciprofloxacillin 400 mg IV piggyback every 12 hours, start metronidazole 500 mg IV piggyback every 8 hours, discontinue Dilaudid start the patient on Toradol 15 mg IV push every 6 hours keep the patient on clear liquid diet until she is evaluated by general surgery. 2. ALLERGIC rhinitis. Stable. 3. Possible ovarian versus need to follow-up with [facility] as an outpatient Dr. Laughlin 4. Pain control. Toradol 15 mg IV push every 6 hours discontinue Dilaudid 5. DVT from [employer]. Heparin 5000 units subcutaneously every 8 hours. 6. GI prophylaxis. Protonix 40 mg IV push daily 7. Admit to inpatient. Estimate a length of stay 2 midnights 8. Full code Past Medical History Past Medical History: No Reported History History of Any Multi-Drug Resistant Organisms: None Reported Past Surgical History: Breast Surgery, Uterine Ablation Additional Past Surgical History / Comment(s): right breast cyst aspiration roughly 5 years ago Past Anesthesia/Blood Transfusion Reactions: No Reported Reaction Past Psychological History: No Psychological Hx Reported Smoking Status: Never smoker Past Alcohol Use History: Occasional Past Drug Use History: None Reported Medications and Allergies Home Medications Medication Instructions Recorded Confirmed Type Cetirizine HCl [Zyrtec] 10 mg PO DAILY 01/05/20 09/19/21 History Ciprofloxacin HCl [Cipro] 500 mg PO Q12HR 09/19/21 09/19/21 History L.acidoph,Paracasei, B.lactis 1 cap PO DAILY 09/19/21 09/19/21 History [Probiotic] Multivitamins, Thera [Multivitamin 1 tab PO DAILY 09/19/21 09/19/21 History (formulary)] metroNIDAZOLE [Flagyl] 500 mg PO TID 09/19/21 09/19/21 History Allergies Allergy/AdvReac Type Severity Reaction Status Date / Time clarithromycin [From Biaxin] Allergy Rash/Hives Verified 09/19/21 08:53 Physical Exam Vitals: Vital Signs Temp Pulse Resp BP Pulse Ox 09/19/21 12:22 67 18 130/75 98 09/19/21 07:14 97 F L 75 18 160/87 100 Intake and Output 09/18/21 09/19/21 09/19/21 22:59 06:59 14:59 Other: Weight 63.503 kg Results CBC & Chem 7: 09/20/21 04:32 09/20/21 04:32 Labs: Abnormal Lab Results - Last 24 Hours (Table) 09/19/21 09/19/21 Range/Units 08:32 08:32 Chloride 109 H (98-107) mmol/L Glucose 103 H (74-99) mg/dL Total Bilirubin 1.7 H (0.2-1.3) mg/dL Urine Blood Trace H (Negative) Urine Bacteria Rare H (None) /hpf
--- NOTE | 2021-10-03 08:06 | P.PN ---
Subjective Progress Note Date: 09/20/21 HISTORY OF PRESENT ILLNESS: This is a 49-year-old female very active and healthy without acute he alth issues except for ALLERGIC rhinitis, patient developed to have a double ear infection when she was down in [place] and she did finish a 10 day course of amoxicillin 875 mg orally twice every day patient felt well after that and she had an episode of dizzy spell that thought to be due to her inner ear infection, patient dizziness got better however 4 days ago developed to have a significant left lower quadrant abdominal pain associated with nausea but no vomiting she has not had any fever or chills with that, she has not had any blood in the stroke relaxer, patient did not do anything about it, she showed up to the office 4 days later on September 18 and the examination was suggestive of left lower quadrant abdominal pain no guarding raising the possibility of sigmoid diverticulitis, she wason oral antibiotic in the form of Ciprofloxacillin 500 mg orally twice every day as well as metronidazole 500 mg orally 2 times every day, she was sent for computed tomography scan of the abdomen and pelvis with oral contrast and IV contrast and the computed tomography scan came back negative e xcept for incomplete distention of the left side of the colon with possible mild colitis without evidence of diverticulitis I advised the patient to continue taking her antibiotic and that she needed to go for a colonoscopy as soon as possible for evaluation, there was questionable adnexal mass or cyst and it was recommended that time for the patient to go for pelvic ultrasound however she was in so much pain that she put that on hold, patient being got worse over the last 24 hours so she ended up coming to the emergency department for evaluation and she ended up going for an ultrasound of the pelvic area that did not show any significant abnormalities, patient ended up coming to the hospital and she was admitted her white count were normal she was started on IV antibiotic in the form of ciprofloxacin as well as metronidazole and IV initially was started on Dilaudid but that made her more sick so she was switched to Toradol 15 mg IV push every 6 hours and she was admitted plus surgical consultation from Dr. biggs. 09/20: Patient in today in the emergency center, waiting for a bed on the observation unit. She remains afebrile, heart rate in the 80s, blood pressure 130/66, pulse ox 99% on room air. Consult with Gen. surgery in place, Dr. biggs. Patient may be discharged home if cleared by general surgery and patient is doing well by the afternoon. REVIEW OF SYSTEMS: Constitutional: No documented fever, no chills, no night sweats. No weight change. No weakness, fatigue or lethargy. No daytime sleepiness. HEENT: No headache. No blurred vision or double vision, no loss of vision. No loss of Hearing, no ringing in the ears, no dizziness. No nasal drainage or congestion. No epistaxis. No sore throat. Lungs: No shortness of breath, no cough, no sputum production. No wheezing. Reports dyspnea with activity. Cardiovascular: No chest pain, no lower extremity edema. No palpitations. No paroxysmal nocturnal dyspnea. No orthopnea. No lightheadedness or dizziness. No syncopal episodes. Abdominal: Reports abdominal pain. mild nausea, no vomiting. No diarrhea. No constipation. No bloody or tarry stools reports loss of appetite. Genitourinary: No dysuria, increased frequency, urgency. No urinary retention. Musculoskeletal: No myalgias. No muscle weakness, no gait dysfunction, no frequent falls. No back pain. No neck pain. Integumentary: No wounds, no lesions. No rash or pruritus. No unusual bruising. No change in hair or nails. Neurologic: No aphasia. No facial droop. No change in mentation. No head injury. No headache. No paralysis. No paresthesia. Psychiatric: No depression. No anxiety. No mood swings. Endocrine: No abnormal blood sugars. No weight change. PHYSICAL EXAMINATION: General: 51-year-old female who is laying down in bed in moderate distress due to abdominal pain. HEENT: Head is atraumatic, normocephalic, pupils were equal round reactive to light and recommendation, extraocular muscle movement were intact, sclera nonicteric, conjunctivae were pale, mucous membranes of the mouth are somewhat dry. Neck: Supple, no JVP, normal carotid upstroke bilaterally, no lymphadenopathy. Chest: Decreased breath sounds at the bases, few rhonchi, no expiratory wheezes, no chest wall tenderness, no intercostal retractions. Heart: First heart sound is normal, second heart sounds normal there is no gallop or murmur. Abdomen: Soft, moderate tenderness of the left lower quadrant and no rebound or guarding positive bowel sounds Extremities: There is no edema no calf tenderness DP +2 bilaterally. Neurologic examination: Patient is awake alert and oriented X 3, cranial nerves II-12 appear grossly intact, muscle power were 5 out of 5 in upper extremities and 5 out of 5 in bilateral lower extremities, deep tendon reflexes normal bilaterally. ASSESSMENT AND PLAN: 1. Severe intractable left lower quadrant abdominal pain with a computed tomography scan of the abdomen and pelvis did not show significant issues except for possible mild colitis no evidence of diverticulitis no evidence of perforation no evidence of abscess. Pelvic ultrasound is negative. Continue IV Levaquin and IV Flagyl for now, continue the patient on Toradol 15 mg IV push every 6 hours, advance diet to full liquid diet until she is evaluated by general surgery. 2. ALLERGIC rhinitis. Stable. 3. Possible ovarian versus need to follow-up with [facility] as an outpatient Dr. Laughlin 4. Pain control. Toradol 15 mg IV push every 6 hours discontinue Dilaudid 5. DVT from [employer]. Heparin 5000 units subcutaneously every 8 hours. 6. GI prophylaxis. Protonix 40 mg IV push daily 7. Admit to inpatient. Estimate a length of stay 2 midnights 8. Full code Impression and plan of care have been directed as dictated by the signing physician. Imani Gann nurse practitioner acting as scribe for signing physician. Objective - Vital Signs Vital signs: Vital Signs Temp 97.8 F 09/20/21 04:38 Pulse 82 09/20/21 04:38 Resp 18 09/20/21 07:00 BP 130/66 09/20/21 04:38 Pulse Ox 99 09/20/21 04:38 Intake & Output 09/19/21 09/20/21 09/20/21 18:59 06:59 18:59 Weight 63.503 kg Other: Voiding Method Toilet # Voids 0 # Bowel Movements 0 - Labs CBC & Chem 7: 09/20/21 04:32 09/20/21 04:32 Labs: Abnormal Lab Results - Last 24 Hours (Table) 09/19/21 09/19/21 Range/Units 08:32 08:32 Chloride 109 H (98-107) mmol/L Glucose 103 H (74-99) mg/dL Total Bilirubin 1.7 H (0.2-1.3) mg/dL Urine Blood Trace H (Negative) Urine Bacteria Rare H (None) /hpf
== END 2021-09-20 17:40 | disposition home or self-care (01) ==
LOC: EC 07:13 → 1SOBS 12:07 → 6NMEDSUR 17:59
PROVIDERS: ADMIT Internal Medicine; ATTEND Internal Medicine
DX: R10.32 Left lower quadrant pain (principal); R11.0 Nausea; J30.9 Allergic rhinitis, unspecified; Z53.29 Procedure and treatment not carried out because of patient's decision for other reasons; Z88.1 Allergy status to other antibiotic agents; Z87.42 Personal history of other diseases of the female genital tract; Z71.9 Counseling, unspecified; Z82.5 Family history of asthma and other chronic lower respiratory diseases; Z82.49 Family history of ischemic heart disease and other diseases of the circulatory system; Z83.438 Family history of other disorder of lipoprotein metabolism and other lipidemia
CPT/HCPCS: 96376 ×2; 96361 ×2; 96365; 96366 ×2; 96367; 96372; 96375 ×2; 99285; 36415; 80053 ×2; 82150; 83605; 83690; 85025 ×2; 81001; 81025; 87040; 74019; 93975; 76856; 76830; G0378 ×3; J2405; J1956; J1885 ×2; J1170 ×2; C9113; J1644

== ENCOUNTER → 2022-05-29 | Outpatient (CLI) | payer BC ==
--- NOTE | 2022-05-30 08:52 | MM ---
Reason for Exam: Screening (asymptomatic). Last mammogram was performed 1 year(s) and 3 month(s) ago. Patient History: Menarche at age 11. First Full-Term at age 27. Patient has history of breast feeding. Hormonal Contraceptives for 16 years from age 21 until age 39. 07/2012, Cyst Aspiration on the Right side. 01/12/2020, Benign Core Biopsy on the right side. Risk Values: Blanca 5 year model risk: 1.4%. NCI Lifetime model risk: 11.2%. Prior Study Comparison: 01/07/2018 Right Diagnostic Mammogram, [facility]. 07/10/2018 Bilateral Diagnostic Mammogram, [facility]. 12/31/2019 Bilateral Diagnostic Mammogram, [facility]. 01/12/2020 Right Diagnostic Mammogram, [facility]. 03/09/2021 Bilateral Screening Mammogram, [facility]. 03/17/2021 Left Diagnostic Mammogram, [facility]. 03/17/2021 Left Diagnostic Ultrasound, [facility]. Tissue Density: The breast tissue is heterogeneously dense. This may lower the sensitivity of mammography. Findings: Analyzed By CAD. Mammotome biopsy clip right breast redemonstrated. There are tiny round calcifications scattered bilaterally with more numerous and loosely grouped central calcifications on background dense tissue in the left breast redemonstrated. No new mass or distortion clearly seen. Overall Assessment: Benign, BI-RAD 2 Management: Screening Mammogram of both breasts in 1 year. A clinical breast exam by your physician is recommended on an annual basis and results should be correlated with mammographic findings. Electronically signed and approved by: Alfredo Lobato M.D.
== END | disposition home or self-care (01) ==
LOC: RADMAMWWP 07:51
PROVIDERS: ATTEND Obstetrics & Gynecology
DX: Z12.31 Encounter for screening mammogram for malignant neoplasm of breast (principal)
CPT/HCPCS: 77063; 77067

== ENCOUNTER → 2023-01-08 | Outpatient (CLI) | payer BC ==
--- NOTE | 2023-01-09 08:36 | CT ---
EXAMINATION TYPE: CT abdomen pelvis wo/w con DATE OF EXAM: 01/08/2023 COMPARISON: HISTORY: abdominal and flank pain. CT DLP: 827.70 mGycm Automated exposure control for dose reduction was used. CONTRAST: CT scan of the abdomen pelvis is performed without and with IV Contrast, patient injected with 100 mL of Isovue 300. FINDINGS- LUNG BASES- No significant abnormality is appreciated. LIVER/GB- No gross abnormality is appreciated. PANCREAS- No gross abnormality is seen. SPLEEN- No gross abnormality is seen. ADRENALS- No gross abnormality is seen. KIDNEYS/BLADDER- no hydronephrosis. There is a nonobstructing lower pole 1 mm calculus bilateral extr arenal pelvis seen. Left renal pelvis is parapelvic renal cysts on the left incidentally noted.. BOWEL- small hiatal hernia. Appendix not seen. There is no evidence of bowel LYMPH NODES- No greater than 1cm abdominal or pelvic lymph nodes are appreciated. OSSEOUS STRUCTURES- No significant abnormality is seen. Spina bifida occulta L5 OTHER- there is a mixed density 1.6 cm structure along the right apex image 62. May be related to an ovarian cyst. Recommend pelvic ultrasound is recommended. There is a tiny l fat-containing periumbil ical hernia. IMPRESSION- 1. Nonobstructing 1 mm left lower pole left renal calculus. 2. 1.5 cm hypodense lesion right adnexa likely ovarian and possibly related to a cyst recommend pelvi c ultrasound.
== END | disposition home or self-care (01) ==
LOC: RADCTMAIN 15:55
PROVIDERS: ATTEND Internal Medicine
DX: N20.0 Calculus of kidney (principal)
CPT/HCPCS: 74178; Q9967

== ENCOUNTER → 2023-07-26 | Outpatient (CLI) | payer BC ==
--- NOTE | 2023-07-26 13:10 | MM ---
Reason for Exam: Screening (asymptomatic). Last mammogram was performed 1 year(s) and 2 month(s) ago. Patient History: Menarche at age 11. First Full-Term at age 27. Perimenopausal. Patient has history of breast feeding. Hormonal Contraceptives for 16 years from age 21 until age 39. 07/2012, Cyst Aspiration on the Right side. 01/12/2020, Benign Core Biopsy on the right side. Last menstrual period: 07/07/2023 Risk Values: Blanca 5 year model risk: 1.5%. NCI Lifetime model risk: 10.8%. Prior Study Comparison: 01/07/2018 Right Diagnostic Mammogram, [facility]. 07/10/2018 Bilateral Diagnostic Mammogram, [facility]. 12/31/2019 Bilateral Diagnostic Mammogram, [facility]. 01/12/2020 Right Diagnostic Mammogram, [facility]. 03/09/2021 Bilateral Screening Mammogram, [facility]. 03/17/2021 Left Diagnostic Mammogram, [facility]. 05/29/2022 Bilateral MG 3D screening mammo w/cad, [facility]. Tissue Density: The breast tissue is heterogeneously dense. This may lower the sensitivity of mammography. Findings: Analyzed By CAD. Right breast biopsy clip. There is no suspicious group of microcalcifications or new suspicious mass. Benign-appearing calcifications bilaterally. Overall Assessment: Benign, BI-RAD 2 Management: Screening Mammogram of both breasts in [address] [facility] will attempt to contact patient to return for supplemental views and ultrasound if indicated. Patient should continue monthly self-breast exams. A clinical breast exam by your physician is recommended on an annual basis. This exam should not preclude additional follow-up of suspicious palpable abnormalities. Note on Blanca scores and lifetime risk: 1. A Blanca score greater than 3% is considered moderate risk. If this is the case, consider specialist referral to assess eligibility for a risk reducing agent. 2. If overall lifetime risk for the development of breast cancer is 20% or higher, the patient may qualify for future screening with alternating mammogram and breast MRI. Electronically signed and approved by: Ted Vela DO
== END | disposition home or self-care (01) ==
LOC: RADMAMWWP 10:53
PROVIDERS: ATTEND Obstetrics & Gynecology
DX: Z12.31 Encounter for screening mammogram for malignant neoplasm of breast (principal)
CPT/HCPCS: 77063; 77067

== ENCOUNTER → 2024-08-25 | Outpatient (CLI) | payer BC ==
--- NOTE | 2024-08-25 08:17 | MM ---
Reason for Exam: Screening (asymptomatic). Last mammogram was performed 1 year(s) and 1 month(s) ago. Patient History: Menarche at age 11. First Full-Term at age 27. Perimenopausal. Patient has history of breast feeding. Hormonal Contraceptives for 16 years from age 21 until age 39. 07/2012, Cyst Aspiration on the Right side. 01/12/2020, Benign Core Biopsy on the right side. Risk Values: Blanca 5 year model risk: 1.6%. NCI Lifetime model risk: 10.7%. Prior Study Comparison: 03/17/2021 Left Diagnostic Mammogram, [facility]. 05/29/2022 Bilateral MG 3D screening mammo w/cad, [facility]. 07/26/2023 Bilateral MG 3D screening mammo w/cad, [facility]. Tissue Density: The breasts are heterogeneously dense, which may obscure small masses. Findings: Analyzed By CAD. Mammotome biopsy clip in the right breast redemonstrated. There are some scattered benign-appearing small round calcifications bilaterally redemonstrated. There is no suspicious new group of microcalcifications or new suspicious mass in either breast. Overall Assessment: Benign, BI-RAD 2 Management: Screening Mammogram of both breasts in 1 year. . Patient should continue monthly self-breast exams. A clinical breast exam by your physician is recommended on an annual basis. This exam should not preclude additional follow-up of suspicious palpable abnormalities. Note on Blanca scores and lifetime risk: 1. A Blanca score greater than 3% is considered moderate risk. If this is the case, consider specialist referral to assess eligibility for a risk reducing agent. 2. If overall lifetime risk for the development of breast cancer is 20% or higher, the patient may qualify for future screening with alternating mammogram and breast MRI. [facility], , 08/25/2024 8:14 AM. Electronically signed and approved by: Alfredo Lobato M.D.
== END | disposition home or self-care (01) ==
LOC: RADMAMWWP 07:38
PROVIDERS: ATTEND Obstetrics & Gynecology
DX: Z12.31 Encounter for screening mammogram for malignant neoplasm of breast (principal); R92.333 Mammographic heterogeneous density, bilateral breasts; Z92.0 Personal history of contraception
CPT/HCPCS: 77063; 77067